=== PATIENT | male | born 2000 | race Caucasian/White ===

== ENCOUNTER → 2018-07-03 | Outpatient (CLI) | payer BC ==
--- NOTE | 2018-07-03 14:50 | MR ---
EXAMINATION TYPE: MR shoulder RT wo con DATE OF EXAM: 07/03/2018 COMPARISON: None HISTORY: Right shoulder pain TECHNIQUE: Multiplanar, multisequence imaging of the right shoulder is performed without contrast. FINDINGS: Rotator Cuff: There is some increased signal within the rotator cuff, no evident rotator cuff tear ho wever. Acromioclavicular Joint: Intact. Glenohumeral Joint: Within normal limits Labrum: Intact, no evident tear Biceps Tendon: The long head of biceps is in normal location within bicipital groove. Bone marrow signal: Focus of low signal present within the humeral head shows a nonaggressive appeara nce and measures 6 mm, possible bone island. Some T2 intense signal is present within the humerus ant eriorly and a cluster of grapes configuration measuring approximately 12 mm which is indeterminate an d shows intermediate signal on T1 weighted images, a focal area of susceptibility artifact is present in this region, this may be due to posttraumatic change of post treatment change. Other: There is no evident joint effusion. IMPRESSION: Suspect some tendinosis of the rotator cuff posteriorly. No carey tear. Indeterminate focus of T2 sig nal. Postop changes.
== END | disposition home or self-care (01) ==
LOC: RADMRIMAIN 11:26
PROVIDERS: ATTEND Family Medicine
DX: M25.511 Pain in right shoulder (principal); Z98.890 Other specified postprocedural states

== ENCOUNTER → 2018-10-29 | Outpatient (CLI) | payer BC ==
--- NOTE | 2018-10-30 12:38 | ECHOF ---
Referral Reason:R06.09 Dyspnea MEASUREMENTS -------- HEIGHT: 182.9 cm WEIGHT: 65.8 kg BP: 116/58 RVIDd: 2.8 cm (< 3.3) IVSd: 0.7 cm (0.6 - 1.1) LVIDd: 4.9 cm (3.9 - 5.3) LVPWd: 1.0 cm (0.6 - 1.1) IVSs: 1.3 cm LVIDs: 2.8 cm LVPWs: 1.5 cm LA Diam: 3.1 cm (2.7 - 3.8) LAESV Index (A-L): 22.51 ml/m Ao Diam: 2.7 cm (2.0 - 3.7) AV Cusp: 2.4 cm (1.5 - 2.6) MV EXCURSION: 23.406 mm (> 18.000) MV EF SLOPE: 186 mm/s (70 - 150) EPSS: 0.1 cm MV E Bean: 0.90 m/s MV DecT: 294 ms MV A Bean: 0.39 m/s MV E/A Ratio: 2.27 RAP: 5.00 mmHg RVSP: 25.88 mmHg TAPSE: 2.25 cm FINDINGS -------- Sinus rhythm. This was a technically good study. The left ventricular size is normal. Left ventricular wall thickness is normal. Overall left vent ricular systolic function is normal with, an EF between 55 - 60 %. The right ventricle is normal in size. Normal LA size by volume 22+/-6 ml/m2. The right atrial size is normal. The atrial septal defect shunts from left to right. ASD VS PFO. The aortic valve is trileaflet, and appears structurally normal. No aortic stenosis or regurgitation. The mitral valve is normal. There is trace to mild mitral regurgitation. The tricuspid valve appears structurally normal. Mild tricuspid regurgitation present. Right vent ricular systolic pressure is normal at < 35 mmHg. Trace/mild (physiologic) pulmonic regurgitation. The aortic root size is normal. Normal inferior vena cava with normal inspiratory collapse consistent with estimated right atrial pre ssure of 5 mmHg. The inferior vena cava is mildly dilated. There is no pericardial effusion. CONCLUSIONS -------- 1. Sinus rhythm. 2. This was a technically good study. 3. The left ventricular size is normal. 4. Left ventricular wall thickness is normal. 5. Overall left ventricular systolic function is normal with, an EF between 55 - 60 %. 6. Normal LA size by volume 22+/-6 ml/m2. 7. The atrial septal defect shunts from left to right. 8. ASD VS PFO. 9. The aortic valve is trileaflet, and appears structurally normal. No aortic stenosis or regurgitati on. 10. There is trace to mild mitral regurgitation. 11. Mild tricuspid regurgitation present. 12. Right ventricular systolic pressure is normal at < 35 mmHg. 13. Trace/mild (physiologic) pulmonic regurgitation. 14. The aortic root size is normal. 15. Normal inferior vena cava with normal inspiratory collapse consistent with estimated right atrial pressure of 5 mmHg. 16. The inferior vena cava is mildly dilated. 17. There is no pericardial effusion. SENIOR LIBRARIAN: Julieta Orona RDCS
== END ==
LOC: RADECHMAIN 16:07
PROVIDERS: ATTEND Family Medicine
DX: I08.1 Rheumatic disorders of both mitral and tricuspid valves (principal); Q21.1 Atrial septal defect
CPT/HCPCS: 93306

== ENCOUNTER → 2021-03-24 | Outpatient (CLI) | payer BC ==
--- NOTE | 2021-03-24 15:49 | CT ---
EXAMINATION TYPE: CT angio chest DATE OF EXAM: 03/24/2021 COMPARISON: NONE HISTORY: SOB, h/o covid CT DLP: 190.6 mGycm. Automated Exposure Control for Dose Reduction was Utilized. CONTRAST: CTA scan of the thorax is performed with IV Contrast, patient injected with 80 mL of Isovue 370, pulm onary embolism protocol. MIP Images are created on CT scanner and reviewed. FINDINGS: LUNGS: The lungs are grossly clear, there is no concerning parenchymal mass or nodule identified. T here is no pleural effusion or pneumothorax seen. The tracheobronchial tree is patent. MEDIASTINUM: There is satisfactory enhancement of the pulmonary artery and its branches, there is no CT evidence for pulmonary embolism. There are no greater than 1 cm hilar or mediastinal lymph nodes. No cardiomegaly or pericardial effusion is seen. OTHER: There is S-shaped scoliosis. IMPRESSION: No CT evidence for acute pulmonary embolism. No acute pulmonary process.
== END | disposition home or self-care (01) ==
LOC: RADCTMAIN 14:53
PROVIDERS: ATTEND Family Medicine
DX: U07.1 COVID-19 (principal)
CPT/HCPCS: 71275; Q9967

== ENCOUNTER → 2022-05-26 | Outpatient (CLI) | payer BC ==
--- NOTE | 2022-05-27 10:03 | CA ---
Transthoracic Echo Report Name: Misha Rod Age: 21 Gender: M : 2000 Exam Date: 05/26/2022 14:00 Exam Location: [facility] Ht (in): 72 Wt (lb): 172 Ordering Physician: Marvin Gray MD Attending/Referring Phys: Lucy Larsen Rn Radiation Radha Cooper RDCS Procedure CPT: Indications: Q21.12 patent foramen ovale Cardiac Hx: Technical Quality: Fair Contrast 1: Total Dose (mL): Contrast 2: Total Dose (mL): MEASUREMENTS (Male / Female) Normal Values 2D ECHO LV Diastolic Diameter PLAX 5.3 cm 4.2 - 5.9 / 3.9 - 5.3 cm LV Systolic Diameter PLAX 3.1 cm IVS Diastolic Thickness 0.9 cm 0.6 - 1.0 / 0.6 - 0.9 cm LVPW Diastolic Thickness 0.9 cm 0.6 - 1.0 / 0.6 - 0.9 cm LV Relative Wall Thickness 0.3 LA Volume 31.5 cm??? 18 - 58 / 22 - 52 cm??? M-MODE Aortic Root Diameter MM 3.4 cm LA Systolic Diameter MM 2.8 cm LA Ao Ratio MM 0.8 AV Cusp Separation MM 2.4 cm DOPPLER AV Peak Velocity 105.5 cm/s AV Peak Gradient 4.5 mmHg LVOT Peak Velocity 105.5 cm/s LVOT Peak Gradient 4.5 mmHg MV Area PHT 2.3 cm??? Mitral E Point Velocity 80.1 cm/s Mitral A Point Velocity 42.0 cm/s Mitral E to A Ratio 1.9 MV Deceleration Time 324.8 ms MV E' Velocity 20.4 cm/s Mitral E to MV E' Ratio 3.9 TR Peak Velocity 241.3 cm/s TR Peak Gradient 23.3 mmHg Right Ventricular Systolic Press 28.3 mmHg FINDINGS Left Ventricle Normal left ventricular size, wall thickness, systolic function with no obvious regional wall motion abnormalities. Normal left ventricular diastolic filling pattern for age. The ejection fraction is visually estimated at 55-60 %. Right Ventricle The right ventricle is normal in size and function. Right ventricular systolic pressure within normal limits. Right Atrium The right atrium is normal in size. Left Atrium The left atrium is normal in size. Interatrial septal aneurysm. Mitral Valve Structurally normal mitral valve without significant stenosis or prolapse. There is no mitral regurgitation. Aortic Valve Structurally normal aortic valve without significant sclerosis or stenosis. There is no aortic regurgitation. Tricuspid Valve Structurally normal tricuspid valve without significant stenosis. Pulmonary artery systolic pressure is normal. Mild tricuspid regurgitation. Pulmonic Valve Structurally normal pulmonic valve without significant stenosis. There is no pulmonic regurgitation. Pericardium Normal pericardium without effusion. Aorta Normal aortic root dimension. CONCLUSIONS Left ventricular ejection fraction 55-60% Mild tricuspid regurgitation RVSP 28 No pericardial effusion Previewed by: Dr. Ba Dhaliwal DO (Electronically Signed) Final Date: 27 May 2022 10:02
== END | disposition home or self-care (01) ==
LOC: RADECHMAIN 13:50
PROVIDERS: ATTEND Family Medicine
DX: I07.1 Rheumatic tricuspid insufficiency (principal); Q21.12 Patent foramen ovale
CPT/HCPCS: 93306

== ENCOUNTER → 2023-12-21 | Outpatient (CLI) | payer BC ==
--- NOTE | 2023-12-21 12:10 | CA ---
Transthoracic Echo Report Name: Misha Rod Age: 23 Gender: M : 2000 Exam Date: 12/21/2023 08:53 Exam Location: [facility] Ht (in): 72 Wt (lb): 165 Ordering Physician: Marvin Gray MD Attending/Referring Phys: Marvin Gray MD Agency Manager Chelsea Payne RDCS Procedure CPT: Indications: Q21.12 patent foramen ovale Cardiac Hx: Technical Quality: Fair Contrast 1: Agitated Saline Total Dose (mL): 2 Contrast 2: Total Dose (mL): MEASUREMENTS (Male / Female) Normal Values 2D ECHO LV Diastolic Diameter PLAX 5.2 cm 4.2 - 5.9 / 3.9 - 5.3 cm LV Systolic Diameter PLAX 3.2 cm IVS Diastolic Thickness 0.6 cm 0.6 - 1.0 / 0.6 - 0.9 cm LVPW Diastolic Thickness 0.9 cm 0.6 - 1.0 / 0.6 - 0.9 cm LV Relative Wall Thickness 0.3 LVOT Diameter 2.2 cm LA Volume 37.3 cm??? 18 - 58 / 22 - 52 cm??? LA Volume Index 19.1 cm???/m??? 16 - 28 cm???/m??? Ascending Aorta Diameter 3.0 cm DOPPLER AV Peak Velocity 116.0 cm/s AV Peak Gradient 5.4 mmHg AV Mean Velocity 77.3 cm/s AV Mean Gradient 2.7 mmHg AV Velocity Time Integral 22.8 cm LVOT Peak Velocity 88.9 cm/s LVOT Peak Gradient 3.2 mmHg LVOT Velocity Time Integral 18.6 cm LVOT Stroke Volume 70.7 cm??? LVOT Stroke Volume Index 36.0 ml/m??? LVOT Cardiac Index 2723.4 cm???/min???m??? AV Area Cont Eq vti 3.1 cm??? AV Area Cont Eq pk 2.9 cm??? MV Area PHT 2.7 cm??? Mitral E Point Velocity 59.4 cm/s Mitral A Point Velocity 48.6 cm/s Mitral E to A Ratio 1.2 MV Deceleration Time 281.7 ms TR Peak Velocity 226.7 cm/s TR Peak Gradient 20.6 mmHg Right Atrial Pressure 5.0 mmHg Pulmonary Artery Systolic Pressu 25.6 mmHg Right Ventricular Systolic Press 25.6 mmHg PV Peak Velocity 93.0 cm/s PV Peak Gradient 3.5 mmHg FINDINGS Left Ventricle Left ventricular ejection fraction is estimated at 60-65 %. Left ventricular cavity size normal. Left ventricular wall thickness normal. No obvious regional wall motion abnormalities. Right Ventricle Normal right ventricular size and function. Right ventricular systolic pressure within normal limits. Right Atrium Normal right atrial size. Positive agitated saline bubble study for right to left shunt. Left Atrium Normal left atrial size. Mitral Valve Structurally normal mitral valve. No mitral stenosis, regurgitation or prolapse. Aortic Valve Aortic valve not well visualized. No aortic valve stenosis or regurgitation. Tricuspid Valve Structurally normal tricuspid valve. No tricuspid stenosis. Trace tricuspid regurgitation. Pulmonic Valve Structurally normal pulmonic valve. No pulmonic stenosis. No pulmonic regurgitation. Pericardium No pericardial effusion. Aorta Normal size aortic root and proximal ascending aorta. CONCLUSIONS Normal LV function Abnormal bubble study showing evidence of [id number] shunt across intra- atrial septum Previewed by: Dr. Lj Rdz MD (Electronically Signed) Final Date: 21 December 2023 12:09
== END | disposition home or self-care (01) ==
LOC: RADECHMAIN 08:46
PROVIDERS: ATTEND Family Medicine
DX: Q21.12 Patent foramen ovale (principal)
CPT/HCPCS: 93306